=== PATIENT | female | born 1985 | race African-American/Black ===

== ENCOUNTER 2018-01-13 19:10 | Emergency (ER) | payer SELFPAY ==
[~2018-01-13] VITALS: Ht 170.2 cm; Wt 97.5 kg
[2018-01-13 19:41] VITALS: BP 144/77
[2018-01-13] MEDS ORDERED: BACITRACIN-POLYMYXIN B TOPICAL OINT UD TOP ONE (22:00)
[2018-01-13] MEDS ORDERED: HYDROcodone-ACET 10/325MG TAB PO ONE (22:15)
== END 2018-01-13 22:43 | disposition home or self-care (01) ==
LOC: EDBD 19:10 → ER 19:10
DX: S01.312A Laceration without foreign body of left ear, initial encounter (principal); M62.838 Other muscle spasm; V43.62XA Car passenger injured in collision with other type car in traffic accident, initial encounter; Y93.89 Activity, other specified; Y99.8 Other external cause status; Y92.410 Unspecified street and highway as the place of occurrence of the external cause
CPT/HCPCS: 70450; 73562